=== PATIENT | female | born 1985 | race Caucasian/White ===

== ENCOUNTER → 2016-08-17 | Outpatient (CLI) | payer BC, MEDICAID ==
[~2016-08-17] MED LIST: BACT400T; CIPR500T19; IBUP800T; PRENATAL VITAMIN
[2016-08-17 17:55] LABS: BASO % 0.5 % (0.0-1.0); EOS # 0.1 K/mm3 (0.0-0.50); EOS % 1.3 % (0.0-3.0); LARGE UNSTAINED CELL # 0.1 K/mm3 (0.0-0.4); LARGE UNSTAINED CELL % 1.5 % (0.0-4.0); LYMPH # 1.4 K/mm3 (1.5-4.5); LYMPH % 15.5 % (24.0-44.0); MEAN CORPUSCULAR HEMOGLOBIN 27.2 pg (27.0-33.0); MEAN CORPUSCULAR HGB CONC 31.5 g/dl (32.0-36.5); MEAN CORPUSCULAR VOLUME 86.5 fl (80.0-96.0); MONO # 0.4 K/mm3 (0.0-0.8); MONO % 5.1 % (0.0-5.0); NEUTROPHILS # 6.2 K/mm3 (1.8-7.7); NEUTROPHILS % 76.2 % (36.0-66.0); PLATELET COUNT, AUTOMATED 230 k/mm3 (150-450); RED CELL DISTRIBUTION WIDTH 16.7 % (11.5-14.5); WHITE BLOOD COUNT 8.1 K/mm3 (4.0-10.0)
[2016-08-17 18:00] LABS: ALBUMIN 3.7 GM/DL (3.2-5.2); ALBUMIN/GLOBULIN RATIO 1.12 (1.00-1.93); ALKALINE PHOSPHATASE 86 U/L (45-117); ALT/SGPT 17 U/L (12-78); ANION GAP 11 MEQ/L (8-16); AST/SGOT 14 U/L (15-37); BILIRUBIN,TOTAL 0.3 MG/DL (0.2-1.0); BLOOD UREA NITROGEN 12 MG/DL (7-18); CALCIUM LEVEL 8.7 MG/DL (8.5-10.1); CARBON DIOXIDE LEVEL 24 MEQ/L (21-32); CHLORIDE LEVEL 108 MEQ/L (98-107); CREATININE FOR GFR 0.72 MG/DL (0.55-1.02); FREE T4 0.99 NG/DL (0.76-1.46); GLOMERULAR FILTRATION RATE > 60.0 (>60); GLUCOSE, FASTING 96 MG/DL (70-105); POTASSIUM SERUM 4.5 MEQ/L (3.5-5.1); SODIUM LEVEL 143 MEQ/L (136-145)
[2016-08-17 18:01] LABS: FOLLICLE STIMULATING HORMONE 6.8 mIU/mL
== END ==
LOC: M SMT 14:45
PROVIDERS: ATTEND Specialist
DX: E88.81 Metabolic syndrome and other insulin resistance (principal)

== ENCOUNTER → 2016-08-29 | Outpatient (CLI) | payer BC, MEDICAID ==
[~2016-08-29] MED LIST changes: +ACET500L PO; +MULT1TAB18 PO; +ULTR50TA PO; +ZITHTAB PO
--- NOTE | 2016-08-29 14:04 | REP ---
RIGHT SHOULDER, COMPLETE: 08/29/2016 CLINICAL HISTORY: Right shoulder pain. FINDINGS: AC joint shows no widening nor is there elevation of the clavicle adjacent to the acromion. No clavicular fracture. The scapula, ribs and humerus without fracture. Scapular Y view shows no subluxation or dislocation and no abnormal calcifications. IMPRESSION: 1. Negative right shoulder series for fracture, subluxation, avulsion, focal bone lesion or abnormal soft-tissue calcification. Signed by Eliseo Sigala MD 08/29/2016 08:00 P
== END ==
LOC: M LRY 12:41
PROVIDERS: ATTEND Physician Assistant
DX: M25.511 Pain in right shoulder (principal)

== ENCOUNTER 2016-09-01 23:38 | Emergency (ER) | payer BC, MEDICAID ==
[~2016-09-01] VITALS: Ht 144.8 cm; Wt 72.2 kg
[~2016-09-01 23:38] MED LIST changes: -ACET500L PO; -MULT1TAB18 PO; -ULTR50TA PO; -ZITHTAB PO
[2016-09-01 23:40] VITALS: BP 150/71
[2016-09-01] MEDS ORDERED: ACET500L PO (23:44)
[2016-09-01] MEDS ORDERED: MULT1TAB18 PO (23:44)
[2016-09-02] MEDS ORDERED: CORTISPORIN OTIC SOLN 10 ML BTL AS ONE
[2016-09-02] MEDS ORDERED: AZITHROMYCIN 250 MG TAB PO ONE
[2016-09-02] MEDS ORDERED: traMADol 50 MG TAB PO ONE
[2016-09-02] MEDS ORDERED: ZITHTAB PO (00:04)
[2016-09-02] MEDS ORDERED: ULTR50TA8 PO (00:04)
== END 2016-09-02 00:22 | disposition home or self-care (01) ==
LOC: M ED 23:38
DX: H60.92 Unspecified otitis externa, left ear (principal); Z79.899 Other long term (current) drug therapy; Z88.0 Allergy status to penicillin; Z88.8 Allergy status to other drugs, medicaments and biological substances; Z91.018 Allergy to other foods; F17.210 Nicotine dependence, cigarettes, uncomplicated

== ENCOUNTER 2016-09-04 22:31 | Emergency (ER) | payer BC, MEDICAID ==
[~2016-09-04] VITALS: Ht 144.8 cm; Wt 70.6 kg
[~2016-09-04 22:31] MED LIST changes: +ACET500L PO; +MULT1TAB18 PO; +ULTR50TA8 PO; +ZITHTAB PO
[2016-09-04] MEDS ORDERED: PANTOPRAZOLE 40MG INJ (PROTONIX) (C9113) IV ONE (23:15)
[2016-09-04 23:21] LABS: BASO % 0.6 % (0.0-1.0); EOS # 0.1 K/mm3 (0.0-0.50); EOS % 1.9 % (0.0-3.0); LARGE UNSTAINED CELL # 0.2 K/mm3 (0.0-0.4); LARGE UNSTAINED CELL % 3.4 % (0.0-4.0); LYMPH # 2.2 K/mm3 (1.5-4.5); LYMPH % 32.3 % (24.0-44.0); MEAN CORPUSCULAR HEMOGLOBIN 27.2 pg (27.0-33.0); MEAN CORPUSCULAR HGB CONC 32.6 g/dl (32.0-36.5); MEAN CORPUSCULAR VOLUME 83.4 fl (80.0-96.0); MONO # 0.4 K/mm3 (0.0-0.8); MONO % 5.7 % (0.0-5.0); NEUTROPHILS # 3.9 K/mm3 (1.8-7.7); PLATELET COUNT, AUTOMATED 267 k/mm3 (150-450); RED CELL DISTRIBUTION WIDTH 17.2 % (11.5-14.5)
[2016-09-04 23:42] LABS: CONTROL LINE HCG INT CTR LINE PRESENT
[2016-09-04 23:50] LABS: ANION GAP 6 MEQ/L (8-16); BLOOD UREA NITROGEN 10 MG/DL (7-18); CALCIUM LEVEL 8.2 MG/DL (8.5-10.1); CARBON DIOXIDE LEVEL 26 MEQ/L (21-32); CHLORIDE LEVEL 109 MEQ/L (98-107); CREATININE FOR GFR 0.65 MG/DL (0.55-1.02); GLOMERULAR FILTRATION RATE > 60.0 (>60); GLUCOSE, FASTING 86 MG/DL (70-105); POTASSIUM SERUM 3.9 MEQ/L (3.5-5.1); SODIUM LEVEL 141 MEQ/L (136-145)
[2016-09-04 23:52] VITALS: BP 110/63
[2016-09-05] MEDS ORDERED: PROT1TAB2 PO (00:06)
--- NOTE | 2016-09-05 07:01 | REP ---
Clinical: Chest pain . Comparison: 01/02/2013 . Findings: The mediastinum and cardiac silhouette are stable and within normal limits for portable technique. The lung reyes are clear without acute consolidation, effusion, or pneumothorax. Skeletal structures are intact. Impression: No acute cardiopulmonary process appreciated. Signed by Harlan Guzman MD 09/05/2016 06:52 A
--- NOTE | 2016-09-05 07:26 | ECGEPIP ---
Stationary ECG Study [facility] - ED Test Date: 2016-09-04 Pat Name: SUZIE MCCRAY Department: Room: - Gender: F Utility Person: edna : [id number] Requested By: Bradford Jordan Order Number: [id number] Reading MD: Becky Ritchie Measurements Intervals [place] Rate: 54 P: 21 CT: 138 QRS: 14 QRSD: 85 T: 25 QT: 434 QTc: 413 Interpretive Statements SINUS BRADYCARDIA PRWP NSTTW ABNORMALITY SIMILAR 12/15/12 Electronically Signed On 09-05-2016 7:26:16 EDT by Becky Ritchie
== END 2016-09-05 00:18 | disposition home or self-care (01) ==
LOC: M ED 22:31
DX: K29.70 Gastritis, unspecified, without bleeding (principal); K21.9 Gastro-esophageal reflux disease without esophagitis; Z82.49 Family history of ischemic heart disease and other diseases of the circulatory system; Z88.0 Allergy status to penicillin; Z88.8 Allergy status to other drugs, medicaments and biological substances; Z91.018 Allergy to other foods
CPT/HCPCS: 71010; 80048; 82550; 82553; 84703; 85025; 93005; 93041; 94760; 96374; 99284; C9113

== ENCOUNTER 2016-09-18 12:57 | Emergency (ER) | payer BC ==
[~2016-09-18] VITALS: Ht 144.8 cm; Wt 70.1 kg
[~2016-09-18 12:57] MED LIST changes: +PROT1TAB2 PO
[2016-09-18 12:58] VITALS: BP 137/70
[2016-09-18] MEDS ORDERED: KEFL500C17 PO (13:23)
== END 2016-09-18 13:35 | disposition home or self-care (01) ==
LOC: M ED 12:57
DX: L03.311 Cellulitis of abdominal wall (principal); J45.909 Unspecified asthma, uncomplicated; Z88.0 Allergy status to penicillin; Z88.8 Allergy status to other drugs, medicaments and biological substances; Z91.018 Allergy to other foods

== ENCOUNTER → 2022-03-05 | Outpatient (REF) | payer BC, MEDICAID ==
[~2022-03-05] MED LIST changes: +KEFL500C17 PO
[2022-03-05 21:18] LABS: APPEARANCE, URINE MANUAL CLEAR (CLEAR); COLOR, URINE MANUAL YELLOW (YELLOW)
[2022-03-05 21:20] LABS: BILIRUBIN, URINE MANUAL NEGATIVE (NEGATIVE); BLOOD URINE MANUAL NEGATIVE (NEGATIVE); GLUCOSE, URINE (UA) MANUAL NEGATIVE (NEGATIVE); KETONE, URINE MANUAL NEGATIVE (NEGATIVE); LEUKOCYTE ESTERASE, URINE MAN TRACE (NEGATIVE); NITRITE, URINE MANUAL NEGATIVE (NEGATIVE); PH,URINE MAN 5.5 UNITS (5.0 - 7.0); PROTEIN, URINE MANUAL NEGATIVE (NEGATIVE); SPECIFIC GRAVITY,URINE MANUAL 1.025 (1.002-1.035); UROBILINOGEN, URINE MANUAL NORMAL (NORMAL)
[2022-03-05 22:06] LABS: BACTERIA, URINE MOD AMOUNT; MUCUS, URINE LARGE AMOUNT (NEGATIVE); SQUAMOUS EPITHELIAL CELL URINE LARGE AMOUNT /hpf (SMALL AMT)
[2022-03-05 22:07] LABS: HYALINE CAST, URINE NONE SEEN /lpf (0-1)
== END ==
LOC: M LAB REF 20:51
PROVIDERS: ATTEND Physician Assistant
DX: N39.0 Urinary tract infection, site not specified (principal)

== ENCOUNTER 2024-12-25 15:08 | Emergency (ER) | payer OTHER, SELFPAY ==
[~2024-12-25] VITALS: Ht 144.8 cm; Wt 75.2 kg
[2024-12-25 15:11] VITALS: BP 138/86; TEMP 97.9; O2SAT 98
[2024-12-25 16:54] LABS: BASO # 0.1 10^3/uL (0.0-0.2); BASO % 1.0 % (0.0-1.0); EOS # 0.4 10^3/uL (0.0-0.5); EOS % 5.0 % (0.0-3.0); LYMPH # 2.6 10^3/uL (1.5-5.0); LYMPH % 29.7 % (24.0-44.0); MONO # 0.6 10^3/uL (0.0-0.8); MONO % 7.1 % (2.0-8.0); NEUTROPHILS # 4.9 10^3/uL (1.5-8.5); NEUTROPHILS % 57.0 % (36.0-66.0); PLATELET COUNT, AUTOMATED 321 10^3/uL (150-450)
[2024-12-25 17:15] LABS: ALT/SGPT 10 U/L (7.0-40); AST/SGOT 16 U/L (<34); C REACTIVE PROTEIN QUANTITATIV 0.72 MG/DL (<1.0); CALCIUM LEVEL 8.6 MG/DL (8.5-10.1); CARBON DIOXIDE LEVEL 26 MMOL/L (20-31); CHLORIDE LEVEL 107 MMOL/L (98-107); CREATININE FOR GFR 0.68 MG/DL (0.55-1.30); GLOMERULAR FILTRATION RATE > 90.0 (>60); POTASSIUM SERUM 5.0 MMOL/L (3.5-5.1); SODIUM LEVEL 142 MMOL/L (136-145)
[2024-12-25 17:17] LABS: HCG, SERUM QUALITATIVE NEGATIVE (NEGATIVE)
[2024-12-25] MEDS ORDERED: ISOVUE-370 76% 100 ML VIAL As Ordered ONE (17:38)
[2024-12-27 07:38] LABS: ERYTHROCYTE SEDIMENTATION RATE 14 mm/hr (0-20)
== END 2024-12-25 17:46 | disposition left against medical advice (07) ==
LOC: M ED 15:08
DX: Z53.21 Procedure and treatment not carried out due to patient leaving prior to being seen by health care provider (principal)

== ENCOUNTER → 2025-01-25 | Outpatient (CLI) | payer OTHER ==
[~2025-01-25] MED LIST changes: +ISOVUE-370 76% 100 ML VIAL ONE
== END ==
LOC: M PLAIMG 07:49
PROVIDERS: ATTEND Surgery
DX: D17.9 Benign lipomatous neoplasm, unspecified (principal)